=== PATIENT | female | born 1990 | race Caucasian/White ===

== ENCOUNTER 2019-12-12 11:42 | Emergency (ER) | payer SELFPAY ==
[2019-12-12] MEDS ORDERED: IPRATROPIUM/ALBUTEROL 0.5-2.5 MG/3 ML AMPUL NEB ONE (12:19)
[2019-12-12] MEDS ORDERED: METHYLPREDNISOLONE INJ 125 MG/2 ML SDV IM ONE (12:19)
[2019-12-12] MEDS ORDERED: ACETAMINOPHEN 325 MG TABLET PO ONE (12:20)
[2019-12-12] MEDS ORDERED: IBUPROFEN 600 MG TABLET PO ONE (12:20)
[2019-12-12] MEDS ORDERED: BENZONATATE 100 MG CAPSULE PO ONE (12:20)
--- NOTE | 2019-12-12 12:22 | ER Document Report ---
ED Medical Screen (RME) - General Chief Complaint: Breathing Difficulty Stated Complaint: COUGH,CONGESTION Time Seen by Provider: 12/12/19 12:16 Notes: Patient is a 29-year-old female who presents to the emergency department with a chief complaint of a cough and shortness of breath. She started with a cough 5 days ago and developed shortness of breath yesterday. Patient denies any fever. Exam: Diminished breath sounds in bilateral lower lobes. I have greeted and performed a rapid initial assessment of this patient. A comprehensive ED assessment and evaluation of the patient, analysis of test results and completion of medical decision making process will be conducted by an additional ED providers. TRAVEL OUTSIDE OF THE [place] IN LAST 30 DAYS: No - Related Data Allergies/Adverse Reactions: No Known Allergies Allergy (Unverified 12/12/19 12:00) Past Medical History Pulmonary Medical History: Reports: Hx Bronchitis, Hx Pneumonia Psychiatric Medical History: Reports: Hx Depression Past Surgical History: Reports: Hx Section Physical Exam - Vital signs Vitals: Temp Pulse Resp BP Pulse Ox 98.3 F 113 H 20 152/90 H 96 12/12/19 11:45 12/12/19 11:45 12/12/19 11:45 12/12/19 11:45 12/12/19 11:45 Course - Vital Signs Vital signs: Temp Pulse Resp BP Pulse Ox 98.3 F 113 H 20 152/90 H 96 12/12/19 11:45 12/12/19 11:45 12/12/19 11:45 12/12/19 11:45 12/12/19 11:45
--- NOTE | 2019-12-12 12:41 | RADIOLOGY REPORT (SQ) ---
EXAM DESCRIPTION: CHEST 2 VIEWS COMPLETED DATE/TIME: 12/12/2019 12:30 pm REASON FOR STUDY: cough x5 days COMPARISON: None. EXAM PARAMETERS: NUMBER OF VIEWS: Two views. TECHNIQUE: An AP view of the chest was obtained.. RADIATION DOSE: NA LIMITATIONS: none FINDINGS: LUNGS AND PLEURA: No consolidation, pleural effusion or pneumothorax. MEDIASTINUM AND HILAR STRUCTURES: No mediastinal or hilar contour abnormality. HEART AND VASCULAR STRUCTURES: The cardiac silhouette and pulmonary vasculature are within normal fisher its. BONES: No acute findings. HARDWARE: None in the chest. OTHER: No other finding. IMPRESSION: No acute cardiopulmonary process. TECHNICAL DOCUMENTATION: JOB ID: [id number] 2010 [employer]- All Rights Reserved Reading location - IP/workstation name: [email or web address]
--- NOTE | 2019-12-12 13:04 | ER Document Report ---
ED Respiratory Problem - General Chief Complaint: Breathing Difficulty Stated Complaint: COUGH,CONGESTION Time Seen by Provider: 12/12/19 12:16 Notes: HPI: 29-year-old female who presents today with the onset around 5 days ago runny nose, congestion, loss of voice, and cough. Intermittent subjective fevers. No vomiting or diarrhea. No calf pain or leg swelling. No chest pain. No difficulty breathing or swallowing. ROS: See HPI All other review of systems reviewed and otherwise negative Reviewed vital signs and nursing note as charted by RN. PHYSICAL EXAM: CONSTITUTIONAL: Alert and oriented and responds appropriately to questions. Well-appearing; well-nourished HEAD: Normocephalic; atraumatic EYES: PERRL; Conjunctivae clear, sclerae non-icteric ENT: Bilateral non purulent rhinorrhea; no facial swelling or tenderness or bogginess to the sinuses; moist mucous membranes; pharynx without lesions noted NECK: Supple without meningismus; non-tender; no cervical lymphadenopathy, no masses CARD: Regular rate and rhythm; no murmurs; symmetric distal pulses RESP: Normal chest excursion without splinting or tachypnea; breath sounds clear and equal bilaterally; no wheezes, no rhonchi, no rales on my exam ABD/GI: Normal bowel sounds; non-distended; soft, non-tender; no palpable organomegaly or masses BACK: The back appears normal and is non-tender to palpation EXT: Normal ROM in all joints; non-tender to palpation; no edema SKIN: No acute lesions noted NEURO: CN 2-12 intact; 5/5 bilateral upper and lower extremity strength with sensation intact to light touch PSYCH: The patient's mood and manner are appropriate. Grooming and personal hygiene are appropriate. TRAVEL OUTSIDE OF THE [place] IN LAST 30 DAYS: No - Related Data Allergies/Adverse Reactions: No Known Allergies Allergy (Unverified 12/12/19 12:00) Past Medical History - Social History Smoking Status: Former Smoker Family History: Reviewed & Not Pertinent Patient has suicidal ideation: No Patient has homicidal ideation: No Pulmonary Medical History: Reports: Hx Bronchitis, Hx Pneumonia Psychiatric Medical History: Reports: Hx Depression Past Surgical History: Reports: Hx Section Physical Exam - Vital signs Vitals: Temp Pulse Resp BP Pulse Ox 98.3 F 113 H 20 152/90 H 96 12/12/19 11:45 12/12/19 11:45 12/12/19 11:45 12/12/19 11:45 12/12/19 11:45 Course - Re-evaluation Re-evalutation: Duo nebs were ordered in triage. I do believe this is most likely an upper respiratory tract infection given the constellation of symptoms. I do believe ACS, PE, dissection to be unlikely. 12/12/19 13:39 X-ray as recorded. Still no wheezing after nebulizer treatment. X-ray as recorded. Given the above history and physical, patient will be discharged home with strict return precautions and instructions regarding [id number] decongestions. I do believe ACS, PE, dissection to be extremely unlikely. - Vital Signs Vital signs: Temp Pulse Resp BP Pulse Ox 98.3 F 113 H 20 152/90 H 96 12/12/19 11:45 12/12/19 11:45 12/12/19 11:45 12/12/19 11:45 12/12/19 11:45 Discharge - Discharge Clinical Impression: Nasal congestion, Cough Condition: Good Disposition: HOME, SELF-CARE Additional Instructions: Come back immediately for any worsening cough, difficulty breathing or swallowing, chest pain, leg swelling, or any other acute problems. Please take [id number] decongestions as we have discussed.
[2019-12-12 13:21] LABS: A TYPE INFLUENZA AG NEGATIVE (NEGATIVE); B INFLUENZA AG NEGATIVE (NEGATIVE)
[2019-12-12 13:51] VITALS: BP 117/75
== END 2019-12-12 13:57 | disposition home or self-care (01) ==
LOC: ER 11:42
DX: R09.81 Nasal congestion (principal); R05 Cough; R68.89 Other general symptoms and signs; R06.00 Dyspnea, unspecified
CPT/HCPCS: 99283; 87804; 71046; J2930; J7620